=== PATIENT | female | born 1955 | race Two or more races ===

== ENCOUNTER 2023-01-25 09:12 | Outpatient (CLI) | payer OTHER ==
[~2023-01-25 09:12] MED LIST: IRON 100 PLUS1 EACH; METHOTREXA25 MG/1 M1 SUBCUTANEO; NORVASC5 MG; PNEU16DI2; ZESTRIL5 MG
== END 2023-01-25 09:18 | disposition home or self-care (01) ==
LOC: RX STUDY 09:12
PROVIDERS: ATTEND Internal Medicine Gastroenterology
DX: K22.2 Esophageal obstruction (principal)

== ENCOUNTER 2023-05-25 13:37 | Outpatient (CLI) | payer OTHER | END 2023-05-25 13:38 | disposition home or self-care (01) | LOC: SONOGRAMA 13:37 | PROVIDERS: ATTEND Obstetrics & Gynecology Obstetrics | DX: E11.9 Type 2 diabetes mellitus without complications (principal); E78.2 Mixed hyperlipidemia; I10 Essential (primary) hypertension; E03.9 Hypothyroidism, unspecified ==

== ENCOUNTER 2023-06-12 13:20 | Outpatient (CLI) | payer OTHER | END 2023-06-12 13:26 | disposition home or self-care (01) | LOC: SONOGRAMA 13:20 | PROVIDERS: ATTEND Pathology Anatomic Pathology & Clinical Pathology | DX: D44.0 Neoplasm of uncertain behavior of thyroid gland (principal); E07.9 Disorder of thyroid, unspecified ==

== ENCOUNTER 2023-09-14 10:54 | Outpatient (CLI) | payer OTHER | END 2023-09-14 10:58 | disposition home or self-care (01) | LOC: SONOGRAMA 10:54 | PROVIDERS: ATTEND Pathology Anatomic Pathology & Clinical Pathology | DX: E04.1 Nontoxic single thyroid nodule (principal) ==

== ENCOUNTER 2024-12-02 15:18 | Outpatient (CLI) | payer OTHER | END 2024-12-02 15:22 | disposition home or self-care (01) | LOC: SONOGRAMA 15:18 | PROVIDERS: ATTEND Surgery Surgical Oncology | DX: E04.2 Nontoxic multinodular goiter (principal) ==